=== PATIENT | male | born 1970 | race Caucasian/White ===

== ENCOUNTER → 2017-04-17 | Outpatient (REF) | payer BC ==
[~2017-04-17] MED LIST: ADVI200T PO; AMBI5TAB PO; NORCOTAB PO; ONDA4TAB6 SL
== END ==
LOC: M LAB REF 09:24
PROVIDERS: ATTEND Physician Assistant
DX: R19.7 Diarrhea, unspecified (principal); R50.9 Fever, unspecified

== ENCOUNTER → 2017-04-17 | Outpatient (REF) | payer BC | LOC: M WUC 11:54 | PROVIDERS: ATTEND Physician Assistant | DX: R19.7 Diarrhea, unspecified (principal) ==

== ENCOUNTER → 2017-04-17 | Outpatient (CLI) | payer BC ==
[~2017-04-17] MED LIST changes: +GASTROGRAFIN SOLUTION 30ML (Q9963) As Ordered ONE; +ISOVUE-370 76% 100ML VIAL (Q9967) As Ordered ONE
[2017-04-17 12:07] LABS: BASO % 0.3 % (0.0-1.0); EOS % 0.1 % (0.0-3.0); LARGE UNSTAINED CELL # 0.1 K/mm3 (0.0-0.4); LARGE UNSTAINED CELL % 1.2 % (0.0-4.0); LYMPH # 0.5 K/mm3 (1.5-4.5); LYMPH % 6.1 % (24.0-44.0); MEAN CORPUSCULAR HEMOGLOBIN 23.7 pg (27.0-33.0); MEAN CORPUSCULAR VOLUME 76.6 fl (80.0-96.0); MONO # 0.4 K/mm3 (0.0-0.8); MONO % 4.8 % (0.0-5.0); NEUTROPHILS # 7.5 K/mm3 (1.8-7.7); NEUTROPHILS % 87.6 % (36.0-66.0); PLATELET COUNT, AUTOMATED 302 k/mm3 (150-450); RED CELL DISTRIBUTION WIDTH 15.6 % (11.5-14.5); WHITE BLOOD COUNT 8.6 K/mm3 (4.0-10.0)
[2017-04-17 12:47] LABS: ALBUMIN 2.9 GM/DL (3.2-5.2); ALBUMIN/GLOBULIN RATIO 0.78 (1.00-1.93); ALKALINE PHOSPHATASE 117 U/L (45-117); ALT/SGPT 28 U/L (12-78); ANION GAP 10 MEQ/L (8-16); AST/SGOT 28 U/L (15-37); BILIRUBIN,TOTAL 1.2 MG/DL (0.2-1.0); BLOOD UREA NITROGEN 12 MG/DL (7-18); CALCIUM LEVEL 8.2 MG/DL (8.5-10.1); CARBON DIOXIDE LEVEL 24 MEQ/L (21-32); CHLORIDE LEVEL 99 MEQ/L (98-107); GLOMERULAR FILTRATION RATE > 60.0 (>60); GLUCOSE, FASTING 133 MG/DL (70-105); POTASSIUM SERUM 3.9 MEQ/L (3.5-5.1); SODIUM LEVEL 133 MEQ/L (136-145); TOTAL PROTEIN 6.6 GM/DL (6.4-8.2)
--- NOTE | 2017-04-17 13:04 | REP ---
CT of the abdomen and pelvis with IV and bowel contrast. Biphasic scanning initially during the arterial / portal venous phase of contrast enhancement and later during the delayed equilibrium phase of contrast enhancement. There are no comparison studies. The visualized lung merritt are unremarkable. There is a large hepatic mass and occupying the medial inferior two thirds of the right hepatic lobe. There is no biliary duct dilatation. The gallbladder is unremarkable. The pancreas and spleen are unremarkable. The adrenals, kidneys and abdominal aorta are unremarkable. There is no retroperitoneal meal or mesenteric adenopathy. Pelvis: There is focal wall thickening of the rectosigmoid colon with moderate distension of the entire colon proximal to this. This is nonspecific and could represent spasm or stricture. The stricture could be inflammatory or neoplastic. There is no pelvic adenopathy. No ascites. The bladder is unremarkable. Impression: Large mass occupying almost to thirds of the right hepatic lobe. Focal wall thickening and luminal narrowing of the distal sigmoid colon as discussed in the body of the report with moderate colonic distension proximal to this. Neoplastic versus inflammatory stricture versus spasm are diagnostic considerations. Signed by Terry Linton MD 04/17/2017 12:56 P
== END ==
LOC: M RAD 10:37
PROVIDERS: ATTEND Physician Assistant
DX: R19.7 Diarrhea, unspecified (principal); R50.9 Fever, unspecified
CPT/HCPCS: 36415; 74177; 80053; 83690; 85025; 86140; 86256; Q9963; Q9967

== ENCOUNTER 2017-04-18 10:58 | Inpatient (IN) | payer BC ==
[~2017-04-18] VITALS: Ht 177.8 cm; Wt 84.0 kg
[2017-04-18] MEDS ORDERED: KETOROLAC 30 MG/ML VIAL (J1885) IV ONE (11:30)
[2017-04-18] MEDS ORDERED: NS 1,000 ML IV ONE ×2 (11:30→15:15)
[2017-04-18] MEDS ORDERED: ONDANSETRON 4MG/2ML VIAL (J2405) IV ONE (11:30)
[2017-04-18 12:17] LABS: BASO % 0.3 % (0.0-1.0); LARGE UNSTAINED CELL # 0.2 K/mm3 (0.0-0.4); LARGE UNSTAINED CELL % 1.6 % (0.0-4.0); LYMPH # 0.5 K/mm3 (1.5-4.5); LYMPH % 3.9 % (24.0-44.0); MEAN CORPUSCULAR HGB CONC 31.5 g/dl (32.0-36.5); MEAN CORPUSCULAR VOLUME 76.2 fl (80.0-96.0); MONO # 0.6 K/mm3 (0.0-0.8); MONO % 4.7 % (0.0-5.0); NEUTROPHILS % 89.5 % (36.0-66.0); PLATELET COUNT, AUTOMATED 323 k/mm3 (150-450); RED CELL DISTRIBUTION WIDTH 15.9 % (11.5-14.5); WHITE BLOOD COUNT 13.4 K/mm3 (4.0-10.0)
[2017-04-18 12:32] LABS: ALBUMIN 2.6 GM/DL (3.2-5.2); ALBUMIN/GLOBULIN RATIO 0.68 (1.00-1.93); ALKALINE PHOSPHATASE 99 U/L (45-117); ALT/SGPT 23 U/L (12-78); ANION GAP 12 MEQ/L (8-16); AST/SGOT 25 U/L (15-37); BILIRUBIN,DIRECT 0.4 MG/DL (0.0-0.2); BLOOD UREA NITROGEN 16 MG/DL (7-18); CALCIUM LEVEL 8.1 MG/DL (8.5-10.1); CARBON DIOXIDE LEVEL 23 MEQ/L (21-32); CHLORIDE LEVEL 99 MEQ/L (98-107); CREATININE FOR GFR 1.23 MG/DL (0.70-1.30); GLOMERULAR FILTRATION RATE > 60.0 (>60); GLUCOSE, FASTING 154 MG/DL (70-105); POTASSIUM SERUM 3.9 MEQ/L (3.5-5.1); SODIUM LEVEL 134 MEQ/L (136-145); TOTAL PROTEIN 6.4 GM/DL (6.4-8.2)
[2017-04-18 12:55] LABS: INR 1.22
--- NOTE | 2017-04-18 13:55 | REP ---
ABDOMINAL SERIES: Cross table lateral and supine films of the abdomen and pelvis demonstrate no evidence of free intraperitoneal air. There is moderate diffuse dilatation of the colon. I do not see radiographic evidence of significantly dilated small bowel loops. No abnormal calcifications are seen. An accompanying view of the chest demonstrates elevation of the right hemidiaphragm with mild bibasilar fibroatelectatic change. IMPRESSION: Moderate diffuse colonic dilatation. No free air. Signed by Terry Silva MD 04/18/2017 03:31 P
[2017-04-18] MEDS ORDERED: KETOROLAC 30 MG/ML VIAL (J1885) IV PRN (15:00)
[2017-04-18] MEDS ORDERED: ONDANSETRON 4MG/2ML VIAL (J2405) IV PRN (15:00)
[2017-04-18] MEDS ORDERED: MORPHINE 2 MG/ML 1ML SYRINGE IV PRN (15:00)
[2017-04-18] MEDS: LR 1,000 ML IV SCH (15:03)
[2017-04-18] MEDS ORDERED: ADVI200T PO (15:20)
--- NOTE | 2017-04-18 15:47 | HPE ---
DATE OF ADMISSION: 04/18/2017 ADMISSION DIAGNOSIS: 1. Rectosigmoid obstruction most likely secondary to tumor. 2. Large right hepatic mass suggestive of metastatic carcinoma. HISTORY OF PRESENT ILLNESS: The patient is a pleasant 46-year-old man who was referred to the emergency department on the morning of April 18 from a local urgent care facility. The patient reports that for probably two years he has had frequent loose bowel movements. He reports that particularly over the last six months he has had multiple loose bowel movements daily. These are approximately every two hours. He reports fecal urgency with no ability to delay his bowel movements. He has occasionally noticed a small amount of rectal bleeding. He reports that over the last few months he has had occasional episodes of fever and chills. This may occur every few weeks. He had developed a sensation of chills in the last couple of days and then also developed some abdominal pain. He was seen at an urgent care center on 04/17 and had been sent for some lab work and a CT scan of the abdomen and pelvis. His labs from 04/17 showed a white count of 8.6 with hematocrit of 31% and 302,000, platelets. A chemistry profile showed sodium of 133, potassium 3.9 and a creatinine of 1.3. His total bilirubin was slightly elevated at 1.2 but his other liver function tests were normal. He had a C-reactive protein that was 8.5. A stool sample for gastrointestinal (GI) pathology revealed positive Clostridium difficile A and B by PCR. A urine culture reported no growth. The CT scan showed a very large mass involving a majority of the right hepatic lobe. He was noted to have thickening in the rectosigmoid colon with distension proximal to this. There appeared to be some nodular areas in the perirectal fat. He was contacted by the urgent care center and directed to the emergency department today. He reports that his pain has increased since yesterday and is primarily located in his right lower quadrant and in his left lower quadrant. He has had no vomiting but has had no appetite. I was asked to evaluate the patient and he is now admitted for further care. ALLERGIES: The patient has no known drug allergies. MEDICATIONS: The patient denies any current active medications. MEDICAL HISTORY: The patient is generally healthy. His only problem has been the issue with frequent loose bowel movements. As noted, he has occasionally seen some small amounts of red blood in the stool. He denies any history of chest pains, palpitation, shortness of breath, endocrine problems or deep venous thrombosis (DVT) or pulmonary embolism. SURGICAL HISTORY: Is negative. SOCIAL HISTORY: The patient is not but has a son in the area. He is a nonsmoker and denies excessive alcohol use. 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 FAMILY HISTORY: The patient reports no significant family history of medical illnesses. REVIEW OF SYSTEMS: The patient denies any history of seizure or stroke. He has had no chest pain or palpitations. He denies any shortness of breath, cough, wheezing or sputum production. He has not had any significant abdominal pain until very recently. He denies any dysuria or hematuria. He denies any bone or joint issues. He has had no history of DVT or pulmonary embolus. The patient does not have a regular medical provider. PHYSICAL EXAMINATION: The patient is a pleasant alert man lying quietly on the emergency department stretcher. VITAL SIGNS: His most recent vital signs show a temperature of 98.7 with a pulse of 84, blood pressure 132/78, respirations of 18 and O2 saturation of 95%. SKIN: Warm and dry. HEENT: Sclerae are anicteric. Mucous membranes are moist. NECK: Is supple without mass. He has no palpable supraclavicular adenopathy. HEART: Exam shows a regular rate and rhythm. LUNGS: Are clear to auscultation bilaterally. ABDOMEN: He has an abdomen that is perhaps very mildly distended but not protuberant. He has some bowel sounds present. He has tenderness to percussion , particularly in the right lower quadrant and in the left lower quadrant. Palpation reveals that the abdomen feels full. He has [id number] tenderness low in the right lower quadrant as well as tenderness low in the left lower quadrant. There is no sign of umbilical or inguinal hernia. He has no inguinal adenopathy. EXTREMITIES: Are without edema. He has no evident skin rash. He has palpable radial and dorsalis pedis and posterior tibial pulses bilaterally. LABORATORY DATA: Laboratory studies today show a white count of 13.4 with a hemoglobin of 10, hematocrit of 31.9 and platelet count of 323,000. Differential count shows 89% neutrophils and 4% lymphocytes. He had a PT of 15.6 with an INR of 1.22 and PTT of 34.8. His chemistry profile today shows sodium 134, potassium 3.9, chloride 99, CO2 of 23, BUN of 16, creatinine 1.23 and glucose of 154. His calcium is 8.1. Total bilirubin is 1.0 with a direct 0.4 which is slightly above normal range. AST, ALT and alkaline phosphatase are normal. He had an ammonia that was normal. His total protein is 6.4 with an albumin of 2.6. He has a lipase of 89. Lactic acid was 2.0. As noted from 04/17, his stool testing was positive for Clostridium difficile A/B. IMAGING: He had a flat and upright abdominal x-ray today in the emergency department which showed moderate diffuse colonic dilatation with no free air. The CT scan from 04/17 is reviewed and the right lobe of the liver appears to be largely replaced by a large mass. There is some thickening in the wall in the region of the rectosigmoid and upper rectum. I believe there are some nodular areas within the rectal mesentery suggestive of enlarged nodes. There is no free air or free fluid. IMPRESSION 1. Rectosigmoid mass, likely colorectal cancer, with obstruction. 2. Large right lobe of liver mass, probably metastasis. PLAN: The patient was counseled that the most significant acute threat to him at this time is an obstruction of the colon from the underlying rectosigmoid lesion. I have recommended that we proceed to the operating room today to perform a colostomy so that we will preclude the possibility of intestinal perforation from his obstruction. At the same procedure, I would recommend that we attempt an endoscopic exam of the rectum to better assess this area and possibly obtain biopsies. In the course of the procedure we might also be able to obtain a biopsy of his liver lesion. The patient was counseled that I cannot be certain that this will be a temporary colostomy as the future treatment that he would require is not yet clear. I have recommended he remain nothing by mouth. He will receive a dose of antibiotic preoperatively. He has received two liters of normal saline in the emergency department and will be continued on maintenance fluid with Ringer's lactate. He will be started on some Protonix. Thromboembolism deterrent stockings (TEDs) and sequentials will be utilized initially for DVT prophylaxis and he will then be started on chemoprophylaxis with Lovenox. The patient had an opportunity to ask questions. He desires to proceed with the plan as I have outlined it. MTDD
[2017-04-18] MEDS ORDERED: PANTOPRAZOLE 40MG INJ (PROTONIX) (C9113) IV ONE (16:00)
[2017-04-18] MEDS ORDERED: ERTAPENEM SODIUM 1 GM in NS MINI-BAG PLUS 50 ML IV ONE (16:00)
[2017-04-18 16:30] VITALS: BP 140/87
[2017-04-18 18:13] LABS: CARCINOEMBRYONIC ANTIGEN 2719.3 NG/ML (<2.5)
[2017-04-18] MEDS ORDERED: ERTAPENEM 1 GM INJ (INVanz) (J1335) As Ordered ONE (20:04)
[2017-04-18] MEDS ORDERED: PROPOFOL 200 MG/20 ML VIAL As Ordered ONE (20:27)
[2017-04-18] MEDS ORDERED: MIDAZOLAM INJ 2 MG/2 ML VIAL (J2250) As Ordered ONE (20:27)
[2017-04-18] MEDS ORDERED: fentaNYL 250 MCG/5 ML INJECTION (J3010) As Ordered ONE (20:27)
[2017-04-18] MEDS ORDERED: LIDOCAINE 2% INJ 100 MG/5 ML SDV (FOR ANES.) As Ordered ONE (20:27)
[2017-04-18] MEDS ORDERED: ROCURONIUM BROMIDE 50 MG/5 ML VIAL/SYRINGE As Ordered ONE ×3 (20:27→22:16)
[2017-04-18] MEDS ORDERED: PHENYLephrine HCL 500 MCG/5 ML (100MCG/ML) SYRINGE (J2370) As Ordered ONE (20:30)
[2017-04-18] MEDS ORDERED: HYDROmorphone HCL 2 MG/ML 1ML VIAL (J1170) As Ordered ONE (21:18)
[2017-04-18] MEDS ORDERED: SUGAMMADEX SODIUM 500 MG/5 ML VIAL (BRIDION) As Ordered ONE (22:55)
[2017-04-18] MEDS ORDERED: diphenhydrAMINE INJ 50MG/ML VIAL (J1200) IV PRN (23:30)
[2017-04-18] MEDS ORDERED: NALBUPHINE HCL 10 MG/ML AMP (J2300) IV PRN (23:30)
[2017-04-18] MEDS ORDERED: MORPHINE 1MG/ML IN 0.9% NACL 100ML IV BAG IV PRN (23:30)
[2017-04-18] MEDS ORDERED: NALOXONE INJ 0.4 MG/1 ML VIAL (J2310) IV PRN (23:30)
[2017-04-18] MEDS ORDERED: EPIDURAL/PCA KEYS XX PRN (23:30)
[2017-04-18] MEDS ORDERED: MORPHINE 1MG/ML IN 0.9% NACL 100ML IV BAG As Ordered ONE (23:36)
[2017-04-18] MEDS ORDERED: KETOROLAC 30 MG/ML VIAL (J1885) As Ordered ONE (23:59)
[2017-04-19] VITALS (10 sets, daily range): BP systolic 115–140; BP diastolic 59–88
[2017-04-19] MEDS ORDERED: HYDROmorphone HCL 1 MG/ML SYRINGE (J1170) IV PRN
[2017-04-19] MEDS ORDERED: ONDANSETRON 4MG/2ML VIAL (J2405) IV PRN
[2017-04-19] MEDS ORDERED: LR 1,000 ML IV SCH
[2017-04-19] MEDS ORDERED: fentaNYL 100 MCG/2 ML INJECTION (J3010) IV PRN
[2017-04-19] MEDS: ALVIMOPAN 12 MG CAPSULE (ENTEREG) PO SCH ×3 (00:56→20:13)
[2017-04-19] MEDS: ACETAMINOPHEN 325 MG TAB PO SCH ×4 (00:56→17:02)
[2017-04-19] MEDS: LR 1,000 ML IV SCH ×4 (00:57→20:14)
[2017-04-19] MEDS: KETOROLAC 30 MG/ML VIAL (J1885) IV SCH ×4 (03:14→20:13)
[2017-04-19 05:56] LABS: BASO % 0.1 % (0.0-1.0); EOS % 0.1 % (0.0-3.0); LARGE UNSTAINED CELL # 0.2 K/mm3 (0.0-0.4); LARGE UNSTAINED CELL % 2.4 % (0.0-4.0); LYMPH # 0.7 K/mm3 (1.5-4.5); LYMPH % 5.2 % (24.0-44.0); MEAN CORPUSCULAR HEMOGLOBIN 23.8 pg (27.0-33.0); MEAN CORPUSCULAR HGB CONC 30.8 g/dl (32.0-36.5); MEAN CORPUSCULAR VOLUME 77.3 fl (80.0-96.0); MONO # 0.5 K/mm3 (0.0-0.8); MONO % 4.8 % (0.0-5.0); NEUTROPHILS # 8.3 K/mm3 (1.8-7.7); NEUTROPHILS % 87.4 % (36.0-66.0); PLATELET COUNT, AUTOMATED 252 k/mm3 (150-450); WHITE BLOOD COUNT 9.5 K/mm3 (4.0-10.0)
[2017-04-19 06:13] LABS: ANION GAP 8 MEQ/L (8-16); BLOOD UREA NITROGEN 22 MG/DL (7-18); CARBON DIOXIDE LEVEL 25 MEQ/L (21-32); CHLORIDE LEVEL 103 MEQ/L (98-107); CREATININE FOR GFR 0.84 MG/DL (0.70-1.30); GLOMERULAR FILTRATION RATE > 60.0 (>60); GLUCOSE, FASTING 106 MG/DL (70-105); POTASSIUM SERUM 4.7 MEQ/L (3.5-5.1); SODIUM LEVEL 136 MEQ/L (136-145)
[2017-04-19] MEDS: PANTOPRAZOLE 40MG INJ (PROTONIX) (C9113) IV SCH (09:37)
[2017-04-19] MEDS: ENOXAPARIN 40 MG/0.4 ML SYRINGE (J1650) SC SCH (09:38)
[2017-04-19] MEDS: ERTAPENEM SODIUM 1 GM in NS MINI-BAG PLUS 50 ML IV SCH (20:12)
[2017-04-20] MEDS: ACETAMINOPHEN 325 MG TAB PO SCH ×4 (00:56→17:55)
[2017-04-20 02:00] VITALS: BP 126/76
[2017-04-20] MEDS: KETOROLAC 30 MG/ML VIAL (J1885) IV SCH ×4 (03:41→21:14)
[2017-04-20 06:00] VITALS: BP 133/82
[2017-04-20 06:12] LABS: BASO % 0.1 % (0.0-1.0); EOS % 0.3 % (0.0-3.0); LARGE UNSTAINED CELL # 0.1 K/mm3 (0.0-0.4); LARGE UNSTAINED CELL % 1.1 % (0.0-4.0); LYMPH # 0.5 K/mm3 (1.5-4.5); LYMPH % 5.4 % (24.0-44.0); MEAN CORPUSCULAR HGB CONC 30.9 g/dl (32.0-36.5); MEAN CORPUSCULAR VOLUME 77.7 fl (80.0-96.0); MONO # 0.3 K/mm3 (0.0-0.8); MONO % 3.7 % (0.0-5.0); NEUTROPHILS # 6.6 K/mm3 (1.8-7.7); NEUTROPHILS % 89.4 % (36.0-66.0); PLATELET COUNT, AUTOMATED 308 k/mm3 (150-450); WHITE BLOOD COUNT 7.4 K/mm3 (4.0-10.0)
[2017-04-20 06:26] LABS: ANION GAP 10 MEQ/L (8-16); BLOOD UREA NITROGEN 22 MG/DL (7-18); CARBON DIOXIDE LEVEL 25 MEQ/L (21-32); CHLORIDE LEVEL 104 MEQ/L (98-107); CREATININE FOR GFR 0.71 MG/DL (0.70-1.30); GLOMERULAR FILTRATION RATE > 60.0 (>60); GLUCOSE, FASTING 111 MG/DL (70-105); POTASSIUM SERUM 4.6 MEQ/L (3.5-5.1); SODIUM LEVEL 139 MEQ/L (136-145)
[2017-04-20] MEDS: LR 1,000 ML IV SCH ×2 (06:27→12:08)
[2017-04-20] MEDS: PANTOPRAZOLE 40MG INJ (PROTONIX) (C9113) IV SCH (07:48)
[2017-04-20] MEDS: ENOXAPARIN 40 MG/0.4 ML SYRINGE (J1650) SC SCH (07:48)
[2017-04-20] MEDS: ALVIMOPAN 12 MG CAPSULE (ENTEREG) PO SCH ×2 (07:49→21:14)
[2017-04-20] MEDS ORDERED: IRON DEXTRAN INJ 25 MG in NS 50 ML IV ONE (13:00)
[2017-04-20] MEDS ORDERED: IRON DEXTRAN INJ 75 MG in NS 100 ML IV ONE (14:00)
--- NOTE | 2017-04-20 14:50 | RO ---
DATE OF PROCEDURE: 04/18/2017 PREOPERATIVE DIAGNOSES: 1. Rectosigmoid obstruction, possibly malignant 2. Large right hepatic lobe mass. POSTOPERATIVE DIAGNOSES 1. 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 2. Large lobulated right lobe of liver mass. PROCEDURES PERFORMED: 1. Anorectal exam under anesthesia with flexible proctoscopy and biopsy of rectal mass. 2. Laparotomy, exploratory, with transection of sigmoid colon and end sigmoid colostomy. SURGEON: Dr. Gonzalez Scott ANESTHESIA: General. INDICATIONS FOR PROCEDURE: The patient is a 46-year-old man who presented to the emergency department on 04/18/2017 on referral from a local urgent care center where he had been seen on 04/17/2017. He had complained of a long history, up to several years, of loose frequent bowel movements. This had worsened over the last 6 months or so. He had occasionally seen bleeding. Labs showed him to be mildly anemic. He had a CT scan of the abdomen and pelvis done on 04/17/2017 that showed a large mass involving the right lobe of the liver and changes in the upper rectum and rectosigmoid suggestive of tumor with obstruction. He was found to have evidence for a colonic obstruction with increased abdominal pain and distension and is now for the followin. Lower endoscopy with biopsy of any identified rectal problem. 2. Laparotomy with creation of a sigmoid colostomy. 3. Possible biopsy of liver mass. DESCRIPTION OF PROCEDURE: The patient was brought to the operating room where he was placed under general endotracheal anesthesia. He was rolled into a left lateral decubitus position. A digital rectal examination was performed, which revealed that at the tip of the examining finger a large mass was palpable. There was a firm rim of tissue palpable consistent with tumor. A colonoscope was inserted and would advance to approximately 15 cm. He was found to have a circumferential ulcerated firm mass with a rolled distal margin consistent with a circumferential rectal cancer. I could not identify a definite lumen extending proximally. Multiple bite biopsies were obtained with a biopsy forceps. The distal edge of the tumor appeared to lie at approximately 9 cm from the anal verge. The scope was removed. The patient was returned to a supine position. A Burks catheter was inserted. Thromboembolism deterrents (TEDs) and sequentials were utilized. The patient's abdomen was prepped and draped in a sterile fashion. The abdomen was entered through a low midline incision, extending from just below the umbilicus to the pubis. The colon was found to be distended primarily with air from the cecum all the way to the rectosigmoid junction. The pelvis contained a small amount of turbid yellow-brown fluid, and there were a few inflammatory adhesions of the terminal ileum down along the right side of the rectosigmoid. These were freed by blunt finger dissection, and there was a small amount of exudate noted, but I could not identify any evidence of perforation. This fluid was irrigated from the area of the pelvis. The pelvis appeared to be largely filled with the rectal and rectosigmoid mass. I did not attempt to break apart any of these attachments out of concern about a possible contained perforation, which might have accounted for the small amount of fluid noted. By palpation, the liver was found to contain a large nodular mass in the right lobe. This was quite large and abutted the lateral abdominal wall in this area. The left lobe appeared normal to palpation. The cecum was carefully inspected and was distended and full of air and fluid, but there was no evidence of any serosal tears or other evidence of impending perforation. I elected to proceed with the colostomy. I did evaluate the possibility of performing a needle biopsy of the liver mass, but I was unable to achieve adequate exposure to safely place a needle through the abdominal wall into the liver. I felt the patient's interests would be better served by not extending his incision significantly higher to allow this needle biopsy to take place. Therefore, attention was turned to the sigmoid colon. I selected the most distal point before the bowel entered the pelvis at a point where I thought that the mesentery could be mobilized. An opening was created through the sigmoid mesentery, and the bowel was stapled with a 75 mm linear cutter stapler. The mesentery was divided down to its base with several blood vessels controlled with hemoclips. The mesentery was then mobilized proximally. The lateral attachments of the mid to distal descending colon were then also divided to mobilize the colon. This provided a nice length of the distal descending and proximal sigmoid colon to create a colostomy. A site was selected in the left lower quadrant several centimeters below the level of the umbilicus. A disk of skin was excised about 3 cm in diameter overlying the rectus muscle on the left-hand side. The anterior fascia was divided longitudinally, and the muscle fibers were spread and the posterior fascia and peritoneum were also divided longitudinally. The end of the bowel was delivered through the abdominal wall with excellent length for maturation of the stoma. The lower abdomen and pelvis was irrigated with saline, which was then removed. The peritoneum along the midline was closed with a running suture of #0 chromic. The surgical team then changed gloves and changed to the closing tray. The wound was irrigated. The midline fascia was closed with interrupted simple sutures of #1 Vicryl. The skin incision was closed with skin mei. The wound was then covered and I proceeded to mature the colostomy. The staple line was partially removed from the end of the colon and the bowel was then everted. Four corner sutures of #3- 0 Vicryl were placed to rochelle the end of the colon. Multiple additional sutures were then placed to complete the maturation of the stoma. The end of the bowel was somewhat edematous but clearly well vascularized. A stoma appliance was placed without difficulty. The midline incision was dressed with a dry sterile gauze. The patient tolerated the procedure well without apparent complication. A nasogastric tube placed at the beginning of the procedure by anesthesia was removed. He was awakened in the operating room, extubated and moved to the recovery room in stable condition. KRISTA
[2017-04-20] MEDS: ERTAPENEM SODIUM 1 GM in NS MINI-BAG PLUS 50 ML IV SCH (21:14)
[2017-04-20 22:00] VITALS: BP 127/82
[2017-04-21] MEDS: ACETAMINOPHEN 325 MG TAB PO SCH ×4 (01:25→16:48)
[2017-04-21 02:00] VITALS: BP 115/75
[2017-04-21] MEDS: KETOROLAC 30 MG/ML VIAL (J1885) IV SCH ×4 (03:56→19:53)
[2017-04-21 06:00] VITALS: BP 128/74
[2017-04-21] MEDS: PANTOPRAZOLE 40MG INJ (PROTONIX) (C9113) IV SCH (08:28)
[2017-04-21] MEDS: LR 1,000 ML IV SCH ×2 (08:29→20:00)
[2017-04-21] MEDS: ENOXAPARIN 40 MG/0.4 ML SYRINGE (J1650) SC SCH (09:00)
[2017-04-21] MEDS: ALVIMOPAN 12 MG CAPSULE (ENTEREG) PO SCH ×2 (09:00→19:52)
[2017-04-21 10:00] VITALS: BP 121/74
[2017-04-21] MEDS ORDERED: IRON DEXTRAN INJ 25 MG in NS 50 ML IV ONE (10:00)
[2017-04-21] MEDS ORDERED: IRON DEXTRAN INJ 75 MG in NS 100 ML IV ONE (11:00)
[2017-04-21 14:00] VITALS: BP 125/75
[2017-04-21] MEDS ORDERED: LIDOCAINE 1% MDV 20ML VIAL As Ordered ONE (15:41)
--- NOTE | 2017-04-21 17:06 | REP ---
ULTRASOUND GUIDED LIVER MASS BIOPSY: The procedure was performed by JENNIFER Menendez under the direct supervision of Dr. Cullen. The procedure along with its risks, benefits, and complications were discussed with the patient prior to the procedure. Informed consent was obtained both verbally and written. The patient was identified in the ultrasound suite and placed in a supine position on the ultrasound table. A procedural "time out" was performed to ensure that the correct patient, site and procedure were being performed. Ultrasound was used to localize the lesion and the area was marked. The area was then prepped and draped in the usual sterile fashion. Local anesthesia was achieved using 10 mL of 1% Xylocaine. A 20-gauge Temno biopsy device was advanced under ultrasound guidance into the lesion and four core biopsy specimens were obtained. The specimens were placed in formalin and sent to the lab for further evaluation. Ultrasound imaging was used to document needle placement for each biopsy pass. Following the procedure the wound was cleansed and compressed. Post procedural ultrasound showed no active bleeding. Sterile gauze and a bandage were applied to the biopsy site and the patient was given their postbiopsy instructions. The patient tolerated the procedure well and was discharged back to the floor in good condition. Reviewed by JENNIFER Messina 04/22/2017 12:09 PEdited and Signed by Mehul Cullen MD 04/22/2017 07:14 P
[2017-04-21] MEDS: ERTAPENEM SODIUM 1 GM in NS MINI-BAG PLUS 50 ML IV SCH (19:53)
[2017-04-21 22:00] VITALS: BP 127/83
[2017-04-22] MEDS: ACETAMINOPHEN 325 MG TAB PO SCH ×4 (00:47→18:51)
[2017-04-22 02:00] VITALS: BP 136/83
[2017-04-22] MEDS: KETOROLAC 30 MG/ML VIAL (J1885) IV SCH ×3 (03:59→16:33)
[2017-04-22 06:00] VITALS: BP 137/81
[2017-04-22 07:03] LABS: BASO % 0.4 % (0.0-1.0); EOS % 0.4 % (0.0-3.0); LARGE UNSTAINED CELL # 0.3 K/mm3 (0.0-0.4); LARGE UNSTAINED CELL % 3.1 % (0.0-4.0); LYMPH # 0.9 K/mm3 (1.5-4.5); LYMPH % 6.1 % (24.0-44.0); MEAN CORPUSCULAR HEMOGLOBIN 23.4 pg (27.0-33.0); MONO # 0.4 K/mm3 (0.0-0.8); MONO % 4.3 % (0.0-5.0); NEUTROPHILS # 8.7 K/mm3 (1.8-7.7); NEUTROPHILS % 85.8 % (36.0-66.0); PLATELET COUNT, AUTOMATED 478 k/mm3 (150-450); RED CELL DISTRIBUTION WIDTH 16.3 % (11.5-14.5); WHITE BLOOD COUNT 10.1 K/mm3 (4.0-10.0)
[2017-04-22 07:27] LABS: ALBUMIN 1.6 GM/DL (3.2-5.2); ALBUMIN/GLOBULIN RATIO 0.52 (1.00-1.93); ALKALINE PHOSPHATASE 70 U/L (45-117); ALT/SGPT 18 U/L (12-78); ANION GAP 10 MEQ/L (8-16); AST/SGOT 36 U/L (15-37); BILIRUBIN,TOTAL 0.5 MG/DL (0.2-1.0); BLOOD UREA NITROGEN 34 MG/DL (7-18); CALCIUM LEVEL 7.9 MG/DL (8.5-10.1); CARBON DIOXIDE LEVEL 26 MEQ/L (21-32); CHLORIDE LEVEL 103 MEQ/L (98-107); CREATININE FOR GFR 0.75 MG/DL (0.70-1.30); GLOMERULAR FILTRATION RATE > 60.0 (>60); GLUCOSE, FASTING 114 MG/DL (70-105); POTASSIUM SERUM 4.5 MEQ/L (3.5-5.1); SODIUM LEVEL 139 MEQ/L (136-145); TOTAL PROTEIN 4.7 GM/DL (6.4-8.2)
[2017-04-22] MEDS: ALVIMOPAN 12 MG CAPSULE (ENTEREG) PO SCH ×2 (09:18→20:14)
[2017-04-22] MEDS: PANTOPRAZOLE 40MG INJ (PROTONIX) (C9113) IV SCH (09:19)
[2017-04-22] MEDS: LR 1,000 ML IV SCH ×2 (09:19→16:42)
[2017-04-22] MEDS: ENOXAPARIN 40 MG/0.4 ML SYRINGE (J1650) SC SCH (09:19)
[2017-04-22 14:00] VITALS: BP 140/80
[2017-04-22 18:00] VITALS: BP 145/70
[2017-04-22] MEDS ORDERED: ONDANSETRON 4 MG ORAL DISINTEGRATING TAB (S0181) SL PRN (19:30)
[2017-04-22] MEDS ORDERED: MORPHINE 2 MG/ML 1ML SYRINGE IV PRN (19:30)
[2017-04-22] MEDS ORDERED: oxyCODONE 5MG TAB PO PRN (19:30)
[2017-04-22] MEDS: ERTAPENEM SODIUM 1 GM in NS MINI-BAG PLUS 50 ML IV SCH (20:14)
[2017-04-22 22:00] VITALS: BP 142/84
[2017-04-23 02:00] VITALS: BP 140/70
[2017-04-23 06:00] VITALS: BP 144/72
[2017-04-23] MEDS: ENOXAPARIN 40 MG/0.4 ML SYRINGE (J1650) SC SCH (09:43)
[2017-04-23] MEDS: ALVIMOPAN 12 MG CAPSULE (ENTEREG) PO SCH ×2 (09:43→20:13)
[2017-04-23] MEDS: SENNA 8.6 MG TAB (SENOKOT) PO SCH ×2 (09:44→20:14)
[2017-04-23] MEDS: ACETAMINOPHEN 325 MG TAB PO SCH ×3 (09:44→18:00)
[2017-04-23] MEDS: DOCUSATE SODIUM 100 MG CAP PO SCH ×2 (09:44→20:14)
[2017-04-23] MEDS: PANTOPRAZOLE 40MG TAB (PROTONIX) PO SCH (09:45)
[2017-04-23 14:00] VITALS: BP 141/76
[2017-04-23] MEDS: ERTAPENEM SODIUM 1 GM in NS MINI-BAG PLUS 50 ML IV SCH (20:13)
[2017-04-23] MEDS ORDERED: ALBUTEROL SULFATE 2.5 MG/0.5 ML INH NEB SOLN NEB PRN (21:15)
[2017-04-23 22:00] VITALS: BP 144/74
[2017-04-24] MEDS: ACETAMINOPHEN 325 MG TAB PO SCH ×4 (00:59→23:43)
--- NOTE | 2017-04-24 01:13 | REP ---
Clinical: Shortness of breath. Comparison: None. Findings: Subtle left lower lobe infiltrate suggests pneumonia / atelectasis. Evaluation is limited by underpenetration and poor inspiratory effort. No obvious effusion or pneumothorax. Mediastinum is incompletely evaluated. Skeletal structures are grossly intact. Impression: Subtle left lower lobe infiltrate/atelectasis. Signed by Raymond Cevallos MD 04/24/2017 01:04 A
[2017-04-24 02:00] VITALS: BP 160/80
[2017-04-24 06:00] VITALS: BP 152/80
[2017-04-24 07:38] LABS: ADD MANUAL DIFFER YES; MEAN CORPUSCULAR HEMOGLOBIN 23.2 pg (27.0-33.0); MEAN CORPUSCULAR HGB CONC 30.4 g/dl (32.0-36.5); MEAN CORPUSCULAR VOLUME 76.4 fl (80.0-96.0); PLATELET COUNT, AUTOMATED 695 k/mm3 (150-450); WHITE BLOOD COUNT 25.4 K/mm3 (4.0-10.0)
[2017-04-24 07:59] LABS: ALBUMIN 1.6 GM/DL (3.2-5.2); ALBUMIN/GLOBULIN RATIO 0.34 (1.00-1.93); ALKALINE PHOSPHATASE 157 U/L (45-117); ALT/SGPT 19 U/L (12-78); ANION GAP 9 MEQ/L (8-16); AST/SGOT 41 U/L (15-37); BLOOD UREA NITROGEN 18 MG/DL (7-18); CALCIUM LEVEL 8.5 MG/DL (8.5-10.1); CARBON DIOXIDE LEVEL 27 MEQ/L (21-32); CHLORIDE LEVEL 100 MEQ/L (98-107); CREATININE FOR GFR 0.69 MG/DL (0.70-1.30); GLOMERULAR FILTRATION RATE > 60.0 (>60); GLUCOSE, FASTING 99 MG/DL (70-105); POTASSIUM SERUM 4.5 MEQ/L (3.5-5.1); SODIUM LEVEL 136 MEQ/L (136-145); TOTAL PROTEIN 6.3 GM/DL (6.4-8.2)
[2017-04-24 08:23] LABS: TOXIC GRANULATION 1+
[2017-04-24 08:24] LABS: ANISOCYTOSIS 2+; HYPOCHROMASIA 1+; POIKILOCYTOSIS 1+
[2017-04-24 08:25] LABS: MICROCYTOSIS 1+
[2017-04-24] MEDS: ENOXAPARIN 40 MG/0.4 ML SYRINGE (J1650) SC SCH (08:44)
[2017-04-24] MEDS: DOCUSATE SODIUM 100 MG CAP PO SCH ×2 (08:45→20:26)
[2017-04-24] MEDS: SENNA 8.6 MG TAB (SENOKOT) PO SCH ×2 (08:45→20:26)
[2017-04-24] MEDS: PANTOPRAZOLE 40MG TAB (PROTONIX) PO SCH (08:45)
[2017-04-24 10:00] VITALS: BP 138/72
[2017-04-24 14:00] VITALS: BP 138/69
--- NOTE | 2017-04-24 15:07 | REP ---
CHEST X-RAY PA AND LATERAL: 04/24/2017 COMPARISON: Portable chest 04/23/2017, CT abdomen pelvis 04/17/2017. CLINICAL HISTORY: Follow-up obstruction. FINDINGS: Better inflation today with elevation of the right diaphragm again seen and basilar atelectatic change. There is bilateral effusion on the lateral view as well as that lower lobe atelectasis. No cardiomegaly, vascular redistribution or edema. The aorta and airway intact. Bones grossly intact. No free air. IMPRESSION: 1. Elevated right diaphragm with bibasilar atelectasis and effusions. No cardiomegaly or edema. Somewhat better inflation today than yesterday's portable chest. Signed by Mehul Cullen MD 04/24/2017 06:35 P
--- NOTE | 2017-04-24 15:11 | REP ---
SUPINE ABDOMEN: 04/24/2017 COMPARISON: Abdominal series, 04/18/2017, CT abdomen/pelvis, 04/17/2017. CLINICAL HISTORY: Followup obstruction. There are multiple skin mei infraumbilical midline abdomen/pelvis with clips in the left midabdomen, left lower quadrant, and an ostomy over the left iliac region. Much improved distension of bowel loops compared to the previous study but still with left upper quadrant small bowel dilatation from focal ileus. This could also be a partial obstruction with scattered stool and gas in the right colon noted. Bones intact. No abnormal calcifications. IMPRESSION: 1. New ostomy since the previous abdominal series 6 days ago with gas and stool in the right colon and with small bowel loops in the left upper quadrant mildly distended, remainder of small bowel intact. This suggests some focal ileus or residual partial obstruction. Certainly improved appearance of the bowel loops since 04/18/2017. Signed by Mehul Cullen MD 04/24/2017 06:35 P
[2017-04-24 18:00] VITALS: BP 148/77
[2017-04-24] MEDS: D5W/LR 1,000 ML IV SCH (20:27)
--- NOTE | 2017-04-24 21:20 | REPUSA ---
CLINICAL HISTORY: Elevated white blood cell count, possible obstruction. TECHNIQUE: CT abdomen and pelvis without contrast. Total DLP 678.1 mGy*cm COMPARISON: April 17, 2017. CT ABDOMEN WITHOUT CONTRAST: Please note exam is severely limited due to absence of IV and PO contrast. Lung bases: Moderate bilateral pleural effusions with dense lower lobe atelectasis including air bron chograms which suggests consolidation. Liver: There is poor evaluation of the known hepatic masses due to absence of IV contrast; however, m easuring up to 8.5 cm diameter. Mild perihepatic ascites. Gallbladder: Contracted. Pancreas: No pancreatic duct dilation. Bowel loops: Several loops of small bowel in the left lower quadrant are mildly dilated 3.6 cm diamet er. Spleen: Normal size. Adrenals: Normal size. Right kidney: No stones or hydronephrosis. Left kidney: No stones or hydronephrosis. Aorta: Normal caliber. Peritoneum: Mild ascites. Small foci of free intraperitoneal status post recent laparotomy. Anterior abdominal wall: Recent midline laparotomy with skin mei. Left lower quadrant colostomy. CT PELVIS WITHOUT CONTRAST: Colon: Status post subtotal colectomy, with residual sigmoid loop, with wall thickening and adjacent mesenteric lymph nodes measuring up to 1.6 cm. Bladder: Normally distended. Pelvic organs: Unremarkable. Peritoneum: Mild free fluid. Lumbar spine: Chronic bilateral L5 spondylolysis IMPRESSION: 1. Significant limitation for evaluation of bowel obstruction or pathologic thickening as well as donavan id organ lesions due to absence of IV and PO contrast. 2. Interval laparotomy and left lower quadrant colostomy. Mild dilation of the left lower quadrant sm all bowel loops without mindi obstruction. Absence of PO contrast limits evaluation for obstruction v ersus ileus. Mild ascites with small foci of intraperitoneal air are an expected appearance after rec ent laparotomy. However, if there is strong clinical suspicion for postsurgical complication such as obstruction or postsurgical leak, it may be necessary to perform PO contrast exam with Gastrografin v ia an NG tube. 3. Findings of sigmoid colon neoplasm, with pelvic mesenteric lymphadenopathy and hepatic masses, whi ch are incompletely evaluated without IV contrast. 4. Interval appearance of moderate bilateral pleural effusions with bilateral lower lobe consolidatio ns such that postsurgical pneumonia is not excluded.
[2017-04-24 22:00] VITALS: BP 176/83
[2017-04-24] MEDS: zolPIDEM TARTRATE 5 MG TAB PO PRN (23:56)
[2017-04-25] MEDS: D5W/LR 1,000 ML IV SCH (03:28)
[2017-04-25 06:00] VITALS: BP 143/88
[2017-04-25 07:21] LABS: BASO % 0.2 % (0.0-1.0); EOS # 0.1 K/mm3 (0.0-0.50); EOS % 0.3 % (0.0-3.0); LARGE UNSTAINED CELL # 0.4 K/mm3 (0.0-0.4); LARGE UNSTAINED CELL % 2.2 % (0.0-4.0); LYMPH # 1.2 K/mm3 (1.5-4.5); LYMPH % 4.6 % (24.0-44.0); MEAN CORPUSCULAR HEMOGLOBIN 23.2 pg (27.0-33.0); MEAN CORPUSCULAR HGB CONC 30.5 g/dl (32.0-36.5); MEAN CORPUSCULAR VOLUME 76.1 fl (80.0-96.0); MONO # 0.7 K/mm3 (0.0-0.8); MONO % 4.2 % (0.0-5.0); NEUTROPHILS # 15.5 K/mm3 (1.8-7.7); NEUTROPHILS % 88.6 % (36.0-66.0); PLATELET COUNT, AUTOMATED 574 k/mm3 (150-450); RED CELL DISTRIBUTION WIDTH 15.9 % (11.5-14.5); WHITE BLOOD COUNT 17.5 K/mm3 (4.0-10.0)
[2017-04-25] MEDS ORDERED: ACETAMINOPHEN 325 MG TAB PO PRN (07:45)
[2017-04-25] MEDS: DOCUSATE SODIUM 100 MG CAP PO SCH ×2 (09:58→21:35)
[2017-04-25] MEDS: PANTOPRAZOLE 40MG TAB (PROTONIX) PO SCH (09:58)
[2017-04-25] MEDS: ENOXAPARIN 40 MG/0.4 ML SYRINGE (J1650) SC SCH (09:59)
[2017-04-25 14:00] VITALS: BP 140/80
[2017-04-25] MEDS ORDERED: AMBI5TAB PO (19:05)
[2017-04-25] MEDS ORDERED: NORCOTAB PO (19:05)
[2017-04-25] MEDS ORDERED: ONDA4TAB6 SL (19:05)
[2017-04-25] MEDS ORDERED: SENNA 8.6 MG TAB (SENOKOT) PO SCH (21:00)
[2017-04-25 22:00] VITALS: BP 141/94
[2017-04-26] MEDS: zolPIDEM TARTRATE 5 MG TAB PO PRN (00:25)
[2017-04-26 06:00] VITALS: BP 131/76
[2017-04-26 06:54] LABS: BASO # 0.1 K/mm3 (0.0-0.2); BASO % 0.3 % (0.0-1.0); EOS % 0.2 % (0.0-3.0); LARGE UNSTAINED CELL # 0.3 K/mm3 (0.0-0.4); LARGE UNSTAINED CELL % 1.6 % (0.0-4.0); LYMPH # 0.8 K/mm3 (1.5-4.5); LYMPH % 4.4 % (24.0-44.0); MEAN CORPUSCULAR HEMOGLOBIN 23.3 pg (27.0-33.0); MEAN CORPUSCULAR HGB CONC 30.5 g/dl (32.0-36.5); MEAN CORPUSCULAR VOLUME 76.5 fl (80.0-96.0); MONO # 0.8 K/mm3 (0.0-0.8); MONO % 4.3 % (0.0-5.0); NEUTROPHILS # 16.6 K/mm3 (1.8-7.7); NEUTROPHILS % 89.2 % (36.0-66.0); PLATELET COUNT, AUTOMATED 648 k/mm3 (150-450); RED CELL DISTRIBUTION WIDTH 15.9 % (11.5-14.5); WHITE BLOOD COUNT 18.6 K/mm3 (4.0-10.0)
[2017-04-26] MEDS: PANTOPRAZOLE 40MG TAB (PROTONIX) PO SCH (09:23)
[2017-04-26] MEDS: DOCUSATE SODIUM 100 MG CAP PO SCH (09:24)
[2017-04-26] MEDS: ENOXAPARIN 40 MG/0.4 ML SYRINGE (J1650) SC SCH (09:25)
--- NOTE | 2017-05-27 18:29 | DSES ---
DATE OF ADMISSION: 04/18/2017 DATE OF DISCHARGE: 04/26/2017 ADMISSION DIAGNOSES: 1. Rectosigmoid obstruction most likely secondary to tumor. 2. Large right hepatic mass suggestive of metastatic carcinoma. HISTORY OF THE PRESENT ILLNESS: The patient is a pleasant 46-year-old man who was referred to the emergency department from a local urgent care facility. The patient reported a long history of frequent loose bowel movements. He reported some fecal urgency. He had occasionally noticed a small amount of rectal bleeding. He was seen in Urgent Care on 04/17/2017 and had some lab work and a CT scan of the abdomen and pelvis obtained. These labs showed a hematocrit of 31%. The CT scan revealed a very large mass involving the majority of the right hepatic lobe. He was noted to have thickening in the rectosigmoid colon with distension proximal to this. There appeared to be some nodular areas in the perirectal fat. In the emergency department, he complained of some abdominal distension and increasing abdominal pain. I was consulted and the patient was admitted for management of his apparent rectosigmoid obstruction, felt to be most likely a rectal cancer with metastases to the liver. HOSPITAL COURSE: The patient was counseled that the colonic obstruction had to be alleviated to prevent the possibility of colonic rupture with diffuse peritonitis and sepsis. He was therefore taken to the operating room on 04/18/2017. He underwent an anorectal exam with a flexible proctoscopy and biopsy of a large completely obstructing rectal mass. The mass was located at approximately 15 cm from the anal verge. The appearance was consistent with a large rectal cancer. He subsequently underwent a laparotomy with transection of the sigmoid colon and an end sigmoid colostomy. Postoperatively he was counseled regarding the operative findings and my impression that these represented an advanced rectal malignancy. We scheduled an ultrasound-guided biopsy of his liver mass. He was found to have a very low iron level and received some intravenous iron. His diet was advanced as his bowel function returned. His pain was managed with analgesics as necessary. The pathology from the rectal biopsy confirmed adenocarcinoma. He had good bowel function through his colostomy and he was instructed in ostomy care. His father and brother were also present to assist in care and learning of the ostomy care. They requested that we make arrangements for his discharge with a plan for him to present to the [facility] in followup so that they could return to their home of origin and seek care there. His biopsy from the liver showed metastatic adenocarcinoma morphologically consistent with a colon primary. By 04/25/2017, which was postop day #7, his appetite was not good, but he was tolerating some liquids and food. He had no significant pain. The abdomen was flat with active bowel sounds and his ostomy was pink. His incision was clean and dry. His hematocrit was stable at 26.5. We discussed the patient's plan for continuing care. He wished to return with his family to the [facility]. His father had already made some arrangements for an appointment at the [facility]. The patient seemed to be comfortable with the colostomy. Prescriptions for [place], Ambien and Zofran were sent to the [facility] for the patient to merchandise pickup/receiving associate. He was advised to have his surgical mei removed in 3-4 days and he was to call me for any problems. Otherwise he was to follow up after relocating to the [facility]. The father had made arrangements for records from his pathology and operative report and history and physical to be provided to them. Procedures: 1. flexible proctoscopy with biopsy of mass 2. Laparotomy with sigmoid colostomy. 3. imaging guided percutaneous liver mass biopsy FINAL DIAGNOSES: 1. Obstructing rectal carcinoma with liver metastases. 2. Iron deficiency anemia. DISPOSITION: The patient was discharged on 04/26/2017 to be seen at [facility] on 05/07/2017. KRISTA
== END 2017-04-26 11:30 | disposition home or self-care (01) | DRG 221 ==
LOC: M ED 10:58 → M ED INP 14:51 → M MS5PR 16:30
PROVIDERS: ADMIT Surgery; ATTEND Surgery
PROC: 0DBP8ZX Excision of Rectum, Via Natural or Artificial Opening Endoscopic, Diagnostic (ICD-10-PCS; principal; 2017-04-18 14:21)
PROC: 0D1N0J4 Bypass Sigmoid Colon to Cutaneous with Synthetic Substitute, Open Approach (ICD-10-PCS; 2017-04-18 14:21)
PROC: 0FB13ZX Excision of Right Lobe Liver, Percutaneous Approach, Diagnostic (ICD-10-PCS; 2017-04-21)
DX: C20 Malignant neoplasm of rectum (principal); K56.69 Other intestinal obstruction; C78.7 Secondary malignant neoplasm of liver and intrahepatic bile duct

== ENCOUNTER → 2017-10-27 | Outpatient (REF) | payer BC ==
[2017-10-27 12:36] LABS: MAGNESIUM LEVEL 0.9 MG/DL (1.8-2.4)
[2017-10-28 10:06] LABS: CARCINOEMBRYONIC ANTIGEN 16.1 NG/ML (<2.5)
== END ==
LOC: M LAB REF 11:41
DX: C20 Malignant neoplasm of rectum (principal)
CPT/HCPCS: 82378

== ENCOUNTER → 2017-11-10 | Outpatient (REF) | payer BC | LOC: M LAB REF 13:22 | DX: C20 Malignant neoplasm of rectum (principal) | CPT/HCPCS: 82378 ==

== ENCOUNTER → 2017-11-24 | Outpatient (REF) | payer BC ==
[2017-11-24 14:20] LABS: MAGNESIUM LEVEL 1.4 MG/DL (1.8-2.4)
[2017-11-25 11:20] LABS: CARCINOEMBRYONIC ANTIGEN 7.7 NG/ML (<2.5)
== END ==
LOC: M LAB REF 13:40
DX: C18.9 Malignant neoplasm of colon, unspecified (principal)
CPT/HCPCS: 82378

== ENCOUNTER → 2017-12-08 | Outpatient (REF) | payer BC ==
[2017-12-08 14:13] LABS: MAGNESIUM LEVEL 1.6 MG/DL (1.8-2.4)
[2017-12-09 09:19] LABS: CARCINOEMBRYONIC ANTIGEN 6.7 NG/ML (<2.5)
== END ==
LOC: M LAB REF 13:21
DX: C20 Malignant neoplasm of rectum (principal)
CPT/HCPCS: 82378

== ENCOUNTER → 2018-01-19 | Outpatient (REF) | payer BC ==
[2018-01-19 19:01] LABS: MAGNESIUM LEVEL 1.7 MG/DL (1.8-2.4)
== END ==
LOC: M LAB REF 18:43
DX: C20 Malignant neoplasm of rectum (principal); C78.7 Secondary malignant neoplasm of liver and intrahepatic bile duct; E83.42 Hypomagnesemia; E87.6 Hypokalemia
CPT/HCPCS: 83735

== ENCOUNTER → 2018-01-26 | Outpatient (REF) | payer BC ==
[2018-01-26 14:14] LABS: MAGNESIUM LEVEL 1.9 MG/DL (1.8-2.4)
[2018-01-27 10:11] LABS: CARCINOEMBRYONIC ANTIGEN 3.5 NG/ML (<2.5)
== END ==
LOC: M LAB REF 13:47
DX: C20 Malignant neoplasm of rectum (principal); C78.7 Secondary malignant neoplasm of liver and intrahepatic bile duct; E87.6 Hypokalemia; E83.42 Hypomagnesemia
CPT/HCPCS: 82378

== ENCOUNTER → 2018-02-09 | Outpatient (REF) | payer BC ==
[2018-02-09 10:41] LABS: MAGNESIUM LEVEL 1.9 MG/DL (1.8-2.4)
== END ==
LOC: M LAB REF 09:55
DX: C20 Malignant neoplasm of rectum (principal); C78.7 Secondary malignant neoplasm of liver and intrahepatic bile duct; E87.6 Hypokalemia; E83.42 Hypomagnesemia
CPT/HCPCS: 83735

== ENCOUNTER → 2018-03-09 | Outpatient (REF) | payer BC ==
[2018-03-09 10:44] LABS: MAGNESIUM LEVEL 1.9 MG/DL (1.8-2.4)
== END ==
LOC: M LAB REF 10:26
DX: C20 Malignant neoplasm of rectum (principal); C78.7 Secondary malignant neoplasm of liver and intrahepatic bile duct; E87.6 Hypokalemia; E83.42 Hypomagnesemia
CPT/HCPCS: 82378

== ENCOUNTER → 2018-04-06 | Outpatient (REF) | payer BC ==
[2018-04-07 12:06] LABS: CARCINOEMBRYONIC ANTIGEN 4.3 NG/ML (<2.5)
== END ==
LOC: M LAB REF 13:58
DX: C20 Malignant neoplasm of rectum (principal); C78.7 Secondary malignant neoplasm of liver and intrahepatic bile duct; E87.6 Hypokalemia; E83.42 Hypomagnesemia

== ENCOUNTER → 2018-04-20 | Outpatient (REF) | payer BC ==
[2018-04-20 13:28] LABS: MAGNESIUM LEVEL 1.9 MG/DL (1.8-2.4)
== END ==
LOC: M LAB REF 13:01
DX: C20 Malignant neoplasm of rectum (principal); C78.7 Secondary malignant neoplasm of liver and intrahepatic bile duct; E87.6 Hypokalemia; E83.42 Hypomagnesemia
CPT/HCPCS: 83735

== ENCOUNTER → 2018-05-04 | Outpatient (REF) | payer BC ==
[2018-05-04 14:08] LABS: MAGNESIUM LEVEL 1.9 MG/DL (1.8-2.4)
[2018-05-05 08:21] LABS: CARCINOEMBRYONIC ANTIGEN 3.8 NG/ML (<2.5)
== END ==
LOC: M LAB REF 13:20
DX: C20 Malignant neoplasm of rectum (principal); C78.7 Secondary malignant neoplasm of liver and intrahepatic bile duct; E87.6 Hypokalemia; E83.42 Hypomagnesemia
CPT/HCPCS: 82378

== ENCOUNTER → 2018-05-18 | Outpatient (REF) | payer BC | LOC: M LAB REF 13:48 | DX: C20 Malignant neoplasm of rectum (principal); C78.7 Secondary malignant neoplasm of liver and intrahepatic bile duct; E87.6 Hypokalemia; E83.42 Hypomagnesemia | CPT/HCPCS: 83735 ==

== ENCOUNTER → 2018-06-01 | Outpatient (REF) | payer BC ==
[2018-06-01 23:14] LABS: MAGNESIUM LEVEL 1.9 MG/DL (1.8-2.4)
[2018-06-02 13:37] LABS: CARCINOEMBRYONIC ANTIGEN 4.4 NG/ML (<2.5)
== END ==
LOC: M LAB REF 13:10
DX: C20 Malignant neoplasm of rectum (principal); C78.7 Secondary malignant neoplasm of liver and intrahepatic bile duct; E87.6 Hypokalemia; E83.42 Hypomagnesemia
CPT/HCPCS: 82378

== ENCOUNTER → 2018-06-15 | Outpatient (REF) | payer BC ==
[2018-06-15 15:00] LABS: MAGNESIUM LEVEL 1.8 MG/DL (1.8-2.4)
[2018-06-16 09:03] LABS: CARCINOEMBRYONIC ANTIGEN 3.8 NG/ML (<2.5)
== END ==
LOC: M LAB REF 14:07
DX: C20 Malignant neoplasm of rectum (principal); C78.7 Secondary malignant neoplasm of liver and intrahepatic bile duct; E87.6 Hypokalemia; E83.42 Hypomagnesemia
CPT/HCPCS: 82378

== ENCOUNTER → 2018-09-10 | Outpatient (CLI) | payer BC ==
[~2018-09-10] MED LIST changes: +CALCTAB44 PO; +CENTCHW4 PO; +DOXY-350 PO; +ENOX40IN3 SC; -GASTROGRAFIN SOLUTION 30ML (Q9963) As Ordered ONE; -ISOVUE-370 76% 100ML VIAL (Q9967) As Ordered ONE; +POTA10TA16 PO
--- NOTE | 2018-09-10 19:57 | REP ---
Right lower extremity duplex venous ultrasound: History: Follow-up DVT. Comparison study December 29, 2017 showed partial thrombosis of the right common femoral and superficial femoral veins. Findings: The there is nonocclusive partial deep venous thrombosis involving the right common femoral vein and proximal and mid right femoral vein. This is essentially unchanged in distribution from the December, prior study. The distal femoral vein and popliteal vein are clear. Impression: The study remains positive for partial nonocclusive deep venous thrombus in the common femoral and femoral vein in the right thigh. This is essentially unchanged in distribution from the findings on December 29, 2017. It may be chronic. Electronically Signed by Jus Mcgovern MD 09/11/2018 10:12 A
== END ==
LOC: M RAD 16:13
PROVIDERS: ATTEND Internal Medicine Medical Oncology
DX: I82.411 Acute embolism and thrombosis of right femoral vein (principal); M79.604 Pain in right leg

== ENCOUNTER → 2019-02-02 | Outpatient (CLI) | payer BC ==
[~2019-02-02] MED LIST changes: +CALC1TAB82 PO; -CALCTAB44 PO; +ENOX120I3 SC; +HYDR-3715 PO; -NORCOTAB PO; +PREG25CA PO
--- NOTE | 2019-02-02 15:59 | REP ---
PET/CT: History: Restaging colon cancer. Diagnosed in 2017 and is status post sigmoid colon resection and sigmoid colostomy. Initial diagnosis with liver metastases. Treated with chemotherapy. Comparisons: Comparison is made with PET-CT images from August 03, 2018 done at an [id number]. TECHNIQUE: 51 minutes following the intravenous injection of a 8.30 mCi dose of F-18 FDG, three-dimensional PET scintigraphy is acquired from the skull base to the proximal thighs. Triplanar noncontrast CT scanning is acquired through the same anatomic range for attenuation correction, and image registration with scan parameters optimized to minimize radiation exposure to the patient. PET scintigraphy and CT datasets were fused and displayed on a workstation with multiplanar and projection display capability. PET/CT Findings: Head and neck soft tissues are unremarkable. There is a right sided [id number] catheter. No abnormal hilar or mediastinal hypermetabolic uptake is seen. No abnormal pulmonary parenchymal uptake is seen. In the abdomen and pelvis, there is normal hepatic, gastrointestinal, and genitourinary FDG accumulation. Lower quadrant colostomy. No abnormal hypermetabolic uptake is seen in the abdomen or pelvis. No new hypermetabolic uptake is seen. There are a few focal parenchymal calcifications in the posterior aspect of the right lobe of the liver. No CT evidence of liver mass. Impression: Negative PET scintigraphy. No abnormal hypermetabolic uptake seen. Electronically Signed by Jus Mcgovern MD 02/02/2019 05:27 P
== END ==
LOC: M PLARAD 08:19
PROVIDERS: ATTEND Internal Medicine Hematology & Oncology
DX: C18.9 Malignant neoplasm of colon, unspecified (principal); Z90.49 Acquired absence of other specified parts of digestive tract; Z92.21 Personal history of antineoplastic chemotherapy
CPT/HCPCS: 78815; A9552

== ENCOUNTER → 2019-04-26 | Outpatient (CLI) | payer BC ==
[~2019-04-26] MED LIST changes: +ENOX150I3 SC; +EQL50TAB2 PO; +LOVE1INJ SC; +[UNRECOGNIZED DRUG - REMARK]
--- NOTE | 2019-04-27 07:37 | REP ---
Clinical: History of thrombus . Technique: Silva scale and color Doppler evaluation using linear high frequency transducer. Findings: Ultrasound examination of the right lower extremity demonstrates complete occlusion at the common femoral vein through proximal superficial femoral vein with flow diverted via collaterals along the medial mid superficial femoral vein. The mid to distal superficial femoral vein and popliteal vein demonstrate normal compressibility flow and wave patterns in response to respiration and augmentation. Impression: Occluding thrombus at the level of the common femoral vein/proximal superficial femoral vein. (Previous examination dated 09/10/2018 demonstrating nonocclusive thrombus). Electronically Signed by Raymond Cevallos MD 04/27/2019 07:29 A
== END ==
LOC: M RAD 06:35
PROVIDERS: ATTEND Surgery
DX: I82.411 Acute embolism and thrombosis of right femoral vein (principal)

== ENCOUNTER 2019-05-03 06:49 | Day surgery (SDC) | payer BC ==
[~2019-05-03] VITALS: Ht 177.8 cm; Wt 98.9 kg
[~2019-05-03 06:49] MED LIST changes: -ENOX150I3 SC; -LOVE1INJ SC; +NS 1,000 ML IV ONE
[2019-05-03] MEDS ORDERED: PROPOFOL 200 MG/20 ML VIAL As Ordered ONE (07:31)
[2019-05-03] MEDS ORDERED: LIDOCAINE 2% INJ 100 MG/5 ML SDV (FOR ANES.) As Ordered ONE (07:31)
--- NOTE | 2019-05-03 08:15 | ROOR ---
Patient Name: Mehul Damon Procedure Date: 05/03/2019 7:36 AM Date of : 1970 Age: 48 Room: [facility] Gender: Male Note Status: Finalized Procedure: Colonoscopy Indications: High risk colon cancer surveillance: Personal history of rectal cancer, Follow up of obstructing rectal cancer after chemotherapy. Providers: Gonzalez Scott MD Referring MD: 1. No Referring Physician 1. No Referring Physician, Admin. Requesting Provider: Medicines: Monitored Anesthesia Care Complications: No immediate complications. Procedure: Pre-Anesthesia Assessment: - Prior to the procedure, a History and Physical was performed, and patient medications and allergies were reviewed. The patient is competent. The risks and benefits of the procedure and the sedation options and risks were discussed with the patient. All questions were answered and informed consent was obtained. Patient identification and proposed procedure were verified by the physician, the nurse and the anesthesiologist in the procedure room. Mental Status Examination: alert and oriented. Airway Examination: normal oropharyngeal airway and neck mobility. CV Examination: regular rate and rhythm. Prophylactic Antibiotics: The patient does not require prophylactic antibiotics. Prior Anticoagulants: The patient has taken no previous anticoagulant or antiplatelet agents. ASA Grade Assessment: II - A patient with mild systemic disease. After reviewing the risks and benefits, the patient was deemed in satisfactory condition to undergo the procedure. The anesthesia plan was to use monitored anesthesia care (MAC). Immediately prior to administration of medications, the patient was re-assessed for adequacy to receive sedatives. The heart rate, respiratory rate, oxygen saturations, blood pressure, adequacy of pulmonary ventilation, and response to care were monitored throughout the procedure. The physical status of the patient was re-assessed after the procedure. The Colonoscope was introduced through the anus and advanced to the rectum. The colonoscopy was performed without difficulty. The patient tolerated the procedure well. The quality of the bowel preparation was good. The Colonoscope was introduced through the sigmoid colostomy and advanced to the cecum, identified by appendiceal orifice and ileocecal valve. Findings: The perianal and digital rectal examinations were normal. A fungating and ulcerated completely obstructing large mass was found at 12 cm proximal to the anus. The mass was circumferential. Oozing was present. The sigmoid colon, descending colon, transverse colon, ascending colon and cecum appeared normal. Impression: - Malignant completely obstructing tumor at 12 cm proximal to the anus. - The sigmoid colon, descending colon, transverse colon, ascending colon and cecum are normal. - No specimens collected. Recommendation: - Discharge patient to home. - Clear liquid diet today. Gonzalez Scott MD Gonzalez Scott MD 05/03/2019 8:15:27 AM Electronically signed by Gonzalez Scott MD Number of Addenda: 0 Note Initiated On: 05/03/2019 7:36 AM Estimated Blood Loss: Estimated blood loss was minimal.
[2019-05-03 08:26] VITALS: BP 143/87
[2019-05-04] MEDS ORDERED: ENOX150I3 SC (16:54)
[2019-05-04] MEDS ORDERED: LOVE1INJ SC (17:31)
[2019-05-05] MEDS ORDERED: ENOX150I3 SC (15:15)
== END 2019-05-03 08:45 | disposition home or self-care (01) ==
LOC: M OPP 06:49
PROVIDERS: ATTEND Surgery
DX: Z85.048 Personal history of other malignant neoplasm of rectum, rectosigmoid junction, and anus (principal); C18.9 Malignant neoplasm of colon, unspecified; K56.691 Other complete intestinal obstruction; Z92.21 Personal history of antineoplastic chemotherapy; Z08 Encounter for follow-up examination after completed treatment for malignant neoplasm

== ENCOUNTER → 2019-06-02 | Outpatient (REF) | payer BC ==
[~2019-06-02] MED LIST changes: +ENOX150I3 SC; +LOVE0.8I3 SC; +LOVE1INJ SC; -NS 1,000 ML IV ONE
== END ==
LOC: M SFHCPLAZ 18:51
PROVIDERS: ATTEND Dermatology
DX: D22.5 Melanocytic nevi of trunk (principal)

== ENCOUNTER → 2019-06-24 | Outpatient (CLI) | payer BC ==
--- NOTE | 2019-06-28 09:48 | RADONC ---
RADIATION ONCOLOGY CONSULTATION NOTE DATE: 06/24/2019 CHART NUMBER: [id number] 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 ECOG PERFORMANCE STATUS: 0. CONSULTATION NOTE: I received a the referral by Dr. Matthew Tapia MD of [facility] to have this patient undertake external beam radiation therapy to his rectum as the only site of residual disease following chemotherapy. HISTORY OF PRESENT ILLNESS: The patient's history is quite long and initially dates back to March 2017 when he was diagnosed with having what appears to be a moderate to poorly differentiated adenocarcinoma of the rectosigmoid region. He underwent resection of his sigmoid colon in [place] in March of 2017. He was already proven to have liver metastasis at that time. The patient has had a colostomy. Over the next subsequent 2 years he has had at least 39 or 40 cycles of chemotherapy. More recently an MRI of the abdomen and pelvis was done on 06/09/2019 and the liver lesions appear to have resolve. There were noted to be atrophy and capsular retraction within the right hepatic lobe, particularly the posterior segments consistent with prior metastasis in treatment related changes. A PET scan had been done in our institution which is available for my review at this time on 02/02/2019. This showed no evidence of hypermetabolic uptake including in the liver. The patient has been requesting strongly of his physicians to have his colostomy reversed and Dr. Tapia ordered a MRI of the rectum which was done on 06/10/2019. This revealed a rectosigmoid tumor with penetration through muscularis propria into the surrounding fat. There was suspicious MERCY and superior rectal lymph nodes. There was noted to the some mesorectal rectal fashion involvement. The patient had done well with his maintenance systemic therapy and initially the plan was to continue with maintenance therapy. Dr. Tapia however presented this case at their multidisciplinary tumor conference at [facility] and apparently the recommendation was to offer this patient some external beam radiation therapy in an attempt to achieve local control in this uncontrolled region considering it is now the only site of disease. PAST MEDICAL HISTORY: The patient's past medical history is positive for a deep venous thrombosis (DVT). ALLERGIES: The patient has no known drug allergies. SOCIAL HISTORY: The patient does not smoke cigarettes nor abuse alcohol. FAMILY HISTORY: The patient's family history is positive for a father with colon cancer. REVIEW OF SYSTEMS: The patient feels great. He has no complaints. He is having no problems with his colostomy no problems with bowel movements or urination. Overall considering his very extensive history of systemic therapy and surgery he is doing remarkably well and is in no pain. The patient's review of systems is noncontributory. He denies nausea, vomiting, fevers, chills, night sweats, diplopia, headaches, anxiety or depression, anorexia, weight loss, visual disturbances, chest pain, urinary or bowel difficulties, bone pain, or neurological problems. PHYSICAL EXAMINATION: The patient is a well-developed, well-nourished white male in no acute distress. HEENT: Exam is normocephalic, atraumatic. Extraocular movements are intact. There is no palpable cervical, supraclavicular, infraclavicular or axillary lymphadenopathy present. His lungs are clear to auscultation and percussion. His heart has regular rate and rhythm. His abdomen is positive for a colostomy present which is free of infection. It is viable. There is no hepatosplenomegaly, masses or tenderness. Extremities: Reveal no clubbing, cyanosis or edema. Skeletal examination reveals no tenderness to pressure or percussion of the bony skeleton. Neurologic exam is grossly intact. ASSESSMENT: I had a very very lengthy discussion with this patient at this time. I do not disagree with the physicians and the recommendations of the tumor board at [facility]. Apparently this rectal mass and tumor is the only known site of disease in this patient and therefore it is not unreasonable to offer him radiation to this area in an attempt to increase the likelihood of achieving some local control. At the same time this area is asymptomatic and the role of radiation in my opinion is palliative in nature. I am unsure of what we are palliating however if we look at it this way. The patient is having an excellent quality of life at this point and I made clear to him that I am willing to deliver radiation to the rectum to achieve local control but it would be just as reasonable to continue with maintenance therapy and reserve radiation should he need it in the future for palliation. The patient continues to talk about reversing his colostomy. I question the logic of that. At this time his colostomy site is causing him no problems. He has a good quality of life. We are unlikely to achieve full local control of his pelvic area considering there is tumor present. To reverse the colostomy and reanastomosis his colon in a diseased site which is radiated may lead to difficulties in his future. Undergoing significant surgery in this asymptomatic non-curable man with a history of liver metastases is questionable. Should this reversal not function or break down, the difficulties for this patient could be catastrophic. I have expressed my concerns to this patient at length. Of course having trained myself at [facility] I would defer to the expertise of their outstanding physicians including their colorectal surgeons and service. Therefore the radiation I am offering can be used as an attempt to achieve local control. Further decisions will be up the patient and his colorectal physicians. As per my conversation with Dr. Tapia we will complete therapy after 5 weeks of treatment and he will be seen back there 4 weeks later for reevaluation and further discussion prior to any decision being made as far as whether or not he has a surgical candidate. Those decisions of course would be between this patient and his surgeon at that time. cc: MD Chalino Salinas MD Julio Garcia-Aguilar, PhD MD Gonzalez Alonzo MD MTDD
== END ==
LOC: M ONCR 14:02
PROVIDERS: ATTEND Radiology Radiation Oncology
DX: C21.8 Malignant neoplasm of overlapping sites of rectum, anus and anal canal (principal); Z80.9 Family history of malignant neoplasm, unspecified; Z93.3 Colostomy status

== ENCOUNTER → 2019-07-22 | Outpatient (RCR) | payer BC ==
--- NOTE | 2019-07-02 10:14 | RADONC ---
RADIATION ONCOLOGY SIMULATION NOTE DATE: 06/30/2019 CHART #: [id number] Mr. Damon was taken to the CT scan for CT simulation of his rectosigmoid field. CT was accomplished without difficulty or discomfort. Radiation treatment planning is underway and radiation treatments will begin subsequently. An immobilization device was created and will be used throughout the course of treatment. It was created without difficulty or discomfort. I was physically present throughout the course of CT simulation.
--- NOTE | 2019-07-05 15:54 | RADONC ---
RADIATION ONCOLOGY PROGRESS NOTE DATE: 07/05/2019 CHART NUMBER: [id number] PROGRESS NOTE: Mr. Damon underwent his first fraction of radiation today to his pelvis for a dose of 180 cGy. It was tolerated without difficulty or discomfort. REVIEW OF SYSTEMS: The patient's review of systems is noncontributory. Denies nausea, vomiting, fevers, chills, night sweats, diplopia, headaches, anxiety or depression, anorexia, weight loss, visual disturbances, chest pain, urinary or bowel difficulties, bone pain, or neurological problems. PHYSICAL EXAMINATION: The patient's skin is in good condition clearly with no evidence of radiation change present. The remainder of his physical exam remains unchanged as well. Mr. Damon is tolerating treatments quite well and radiation will continue as scheduled.
--- NOTE | 2019-07-13 07:59 | RADONC ---
RADIATION ONCOLOGY PROGRESS NOTE DATE: 07/12/2019 CHART NUMBER: [id number] Mr. Damon with a diagnosis of adenocarcinoma of the rectum status post chemotherapy with an area of a persistent disease is currently receiving local regional radiotherapy as this is the only site of known disease. Treatments are being given with the intent of reducing the size of this known disease. Thus far he seems to be tolerating his radiotherapy reasonably well and he has been given chemotherapy which will be withheld today. He has no complaints related to his radiotherapy specifically denying any nausea, vomiting, diarrhea, dysuria, hematuria or blood. His energy level is such that he is able to maintain many day-to-day activities without any alteration of his lifestyle. Examination findings the skin within the irradiated volume shows no evidence of erythema and certainly no focal desquamation. There is no palpable peripheral lymphadenopathy. Lungs are clear. The remainder of the physical examination is unchanged. IMPRESSION: Tolerating therapy reasonably well. PLAN: The chemotherapy will be withheld today. I believe Dr. Marta Adams is communicating with his physicians at [facility]. The radiotherapy is aimed at reducing this. His treatments are going relatively well. IMPRESSION: Tolerating therapy well. PLAN: Treatments to continue. [facility]
--- NOTE | 2019-07-20 07:35 | RADONC ---
RADIATION ONCOLOGY PROGRESS NOTE DATE: 07/19/2019 CHART NUMBER: [id number] Mr. Damon is presently a dose of 1980 cGy to his rectum and is tolerating treatments quite well at this point with no complaints related to his radiation therapy. He is having no urinary or bowel difficulties and no bone pain. REVIEW OF SYSTEMS: The patient's review of systems is noncontributory. He denies nausea, vomiting, fevers, chills, night sweats, diplopia, headaches, anxiety or depression, anorexia, weight loss, visual disturbances, chest pain, urinary or bowel difficulties, bone pain or neurological problems. PHYSICAL EXAMINATION: The patient's skin is in good condition with no evidence of moist or dry desquamation. The remainder of his physical exam remains unchanged. Mr. Damon is tolerating treatments quite well and radiation will continue as scheduled. He is presently receiving radiation sensitizing chemotherapy which began last week.
[~2019-07-22] MED LIST changes: +CAPE1TAB PO; +CAPE1TAB2 PO
== END ==
LOC: M ONCR 06-30 13:45
PROVIDERS: ATTEND Radiology Radiation Oncology
DX: C20 Malignant neoplasm of rectum (principal)

== ENCOUNTER 2019-08-06 15:32 | Outpatient (RCR) | payer BC ==
--- NOTE | 2019-07-27 07:10 | RADONC ---
RADIATION ONCOLOGY PROGRESS NOTE DATE: 07/26/2019 CHART #: [id number] Mehul Damon with a diagnosis of malignant neoplasm involving the rectum is currently receiving local regional radiotherapy. He is tolerating his therapy reasonably well, denying any nausea, vomiting, significant diarrhea, dysuria, hematuria or blood per rectum. His energy level is such that he is able to maintain most day-to-day activities without any significant alteration of his lifestyle. EXAMINATION FINDINGS: The skin within the irradiated volume shows neither erythema nor desquamation. Lymphatics: No palpable peripheral lymphadenopathy is appreciated. Lungs: Clear. Heart: Regular without murmurs. Abdomen: Without evidence of hepatomegaly, masses, deep abdominal tenderness. Extremities: Without cyanosis, clubbing or edema. IMPRESSION: Tolerating therapy well. PLAN: Treatments to continue.
--- NOTE | 2019-08-03 07:35 | RADONC ---
RADIATION ONCOLOGY PROGRESS NOTE DATE: 08/02/2019 CHART NUMBER: [id number] Mr. Damon is presently at a dose of 3780 cGy to his rectum and is tolerating treatments quite well at this point with no complaints related to his radiation therapy. He is having no significant urinary or bowel difficulties and no bone pain. The patient's review of systems is noncontributory. He denies nausea, vomiting, fevers, chills, night sweats, diplopia, headaches, anxiety or depression, anorexia, weight loss, visual disturbances, chest pain, urinary or bowel difficulties, bone pain, or neurological problems. PHYSICAL EXAMINATION: The patient's skin overall is in good condition with no evidence of moist desquamation. There is some erythema and tanning present. The remainder of his physical exam remains unchanged. Mr. Damon is tolerating treatments quite well and radiation will continue as scheduled. He will be calling [facility] to set up a followup appointment following completion of radiation.
--- NOTE | 2019-08-09 13:16 | RADONC ---
RADIATION ONCOLOGY TREATMENT SUMMARY DATE OF SERVICE: 08/06/2019 CHART NUMBER: [id number]. 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 ECOG PERFORMANCE STATUS: 0. TREATMENT SUMMARY: Mr. Damon is a very pleasant 48-year-old white male with the diagnosis of a moderately differentiated adenocarcinoma of the rectum who was initially diagnosed back in March 2017 and had a diverting colostomy at that time, as well as multiple cycles of chemotherapy. He presented to us for consideration of external beam radiation therapy to his pelvis as the only site of residual disease following his courses of systemic therapy. We treated the patient to his pelvis for a dose of 4500 cGy delivered in 25 fractions of 180 cGy each over 32 elapsed days from 07/05/2019 through 08/06/2019. The patient's pelvis was treated on a linear accelerator utilizing a 15 MV photon beam via 3D conformal technique with left and right lateral and posterior merritt. In addition, the patient underwent concomitant radiation-sensitizing chemotherapy with his medical oncologist. The patient was able to complete therapy as prescribed without difficulty. The patient is scheduled to see me again in 1 month for further followup and will continue his close followup with his physicians at [facility]. Indeed, he is scheduled to see them within the next couple of weeks or so. I did have a further discussion with this patient with regard to his desire for surgical resection and reanastomosis of his colostomy site. Because this was considered a possibility, I limited my overall radiation dose to a preoperative dose in order to reduce any risk from such surgery if his [facility] physicians and the patient decide to undergo such treatment. Indeed, the patient was treated utilizing our standard preoperative radiation dose with radiation sensitizing chemotherapy. I did discuss once again some my concerns with this patient. He has had persistent disease in that area, even following many cycles in over 2 years of systemic therapy. He is having no pain, discomfort, or other problems with regard to his colostomy site; and overall, his quality of life is quite good. I am concerned that such surgery could possibly interfere with that quality or cause him more problems than solutions. Once again, it is a personal choice; and I will defer to the expertise of his treating physician. Thank you for allowing us to participate in the care of this very pleasant gentleman. As always, warm regards. Cirilo Cummings cc: Tareq BraMD Chalino portillo MD Julio Garcia-Aguilar, PhD MD Gonzalez Alonzo MD MTDD
[2019-08-10] MEDS ORDERED: LOVE0.8I3 SC (11:33)
[2019-08-11] MEDS ORDERED: CAPE1TAB PO (10:44)
[2019-08-11] MEDS ORDERED: CAPE1TAB2 PO (10:44)
== END 2019-08-21 ==
LOC: M ONCR 15:32
PROVIDERS: ATTEND Radiology Radiation Oncology
DX: C20 Malignant neoplasm of rectum (principal)

== ENCOUNTER → 2019-09-01 | Outpatient (CLI) | payer BC ==
--- NOTE | 2019-09-01 16:16 | RADONC ---
RADIATION ONCOLOGY FOLLOWUP NOTE DATE: 09/01/2019 CHART NUMBER: [id number] DIAGNOSIS: Adenocarcinoma of the rectum. STAGE: IV, metastatic. ECOG PERFORMANCE STATUS: 0 FOLLOWUP NOTE: Mr. Damon is a very pleasant 49-year-old white male with the diagnosis of a moderately differentiated adenocarcinoma of the rectum who is presenting to us today for routine followup visit 1 month post completion of pelvic radiation. The patient presents today reporting that he is doing quite well with no complaints at this time related to his radiation therapy or disease. He is having no rectal or other problems. REVIEW OF SYSTEMS: The patient's review of systems is noncontributory. Denies nausea, vomiting, fevers, chills, night sweats, diplopia, headaches, anxiety or depression, anorexia, weight loss, visual disturbances, chest pain, urinary or bowel difficulties, bone pain, or neurological problems. PHYSICAL EXAMINATION: The patient is a well-developed, well-nourished male in no acute distress. HEENT exam is normocephalic, atraumatic. Extraocular movements are intact. There is no palpable cervical, supraclavicular, infraclavicular, axillary, or inguinal lymphadenopathy present. Lungs are clear to auscultation and percussion. Heart has a regular rate and rhythm. Abdomen is benign with no hepatosplenomegaly, masses, or tenderness. Rectal examination reveals a normal anal sphincter tone. Skeletal examination reveals no tenderness to pressure or percussion of the bony skeleton. Extremities reveal no clubbing, cyanosis, or edema. Neurologic exam is grossly intact, as is the remainder of the physical examination. ASSESSMENT: The patient is clinically doing well at this time. He is scheduled to be seen at [facility] on Friday, at which time MRIs and CT scans will be undertaken. On Friday, he will be needing his GI surgeon for an evaluation for the possibility of surgery. In addition, the patient is scheduled to be seen in our medical oncology department for routine followup visits as well. In light of this, I am discharging him from my followup except on a p.r.n. basis. I let him know I am available to him at anytime if he has any questions or if I could be of any assistance or provide any information. Indeed the patient has my cell phone number and office number. cc: MD Chalino Salinas MD Julio Garcia-Aguilar, PhD MD Gonzalez Alonzo MD
== END ==
LOC: M ONCR 15:23
PROVIDERS: ATTEND Radiology Radiation Oncology
DX: C20 Malignant neoplasm of rectum (principal)

== ENCOUNTER → 2019-12-01 | Outpatient (REF) | payer BC ==
[~2019-12-01] MED LIST changes: +TAMS1CAP17 PO
== END ==
LOC: M LAB REF 10:51
PROVIDERS: ATTEND Dermatology
DX: D49.2 Neoplasm of unspecified behavior of bone, soft tissue, and skin (principal)